=== PATIENT | female | born 1995 | race Caucasian/White ===

== ENCOUNTER 2024-02-25 23:04 | Observation (INO) | payer OTHER, SELFPAY ==
[2024-02-25 23:11] VITALS: BP 119/95
[2024-02-25 23:12] VITALS: PULSE 76; O2SAT 100
[2024-02-25 23:17] VITALS: BP 119/95; PULSE 77; RESP 17; TEMP 36.6; O2SAT 99; BMI 33.6
[2024-02-25 23:30] VITALS: PULSE 68; O2SAT 98
[2024-02-26] VITALS (31 sets, daily range): BP systolic 93–187; BP diastolic 52–98; PULSE 53–85; RESP 10–19; TEMP 36.5–36.9; O2SAT 96–100; BMI 33.6
--- NOTE | 2024-02-26 00:13 | DI.RAD.S_ITS ---
PROCEDURE: XR KNEE RT 3V INDICATIONS: trauma TECHNIQUE: 3 views of the knee were acquired. COMPARISON: None. FINDINGS: Bones: No fractures or dislocations. No suspicious bony lesions. Soft tissues: No joint effusion. No suspicious soft tissue calcifications. Deep laceration anterior to the tibia. IMPRESSION: Deep laceration anterior to the tibia. No underlying fracture. Dictated by: Isaias Moura M.D. on 02/26/2024 at 0:34 Approved by: Isaias Moura M.D. on 02/26/2024 at 0:38
[2024-02-26] MEDS: SODIUM CHLORIDE 0.9% 1,000 ML 150 ML IV (00:43)
[2024-02-26] MEDS: KETOROLAC 30 MG/ML VIAL 15 MG IV (00:43)
[2024-02-26] MEDS: TET,DIPH,PERTUSS(ACELL),VAC/PF 0.5 ML SYRINGE IM (00:45)
--- NOTE | 2024-02-26 00:49 | ED_ITS ---
HPI - Extremity Injury (Lower) General Chief Complaint: Extremity Injury, Lower Stated Complaint: degloved rt kneecap Time Seen by Provider: 02/26/24 00:03 Source: patient Mode of arrival: Ambulatory History of Present Illness HPI Narrative: 28-year-old woman with a history of depression, ulcerative colitis currently on immune modulating medications was walking on the beach slipped on a rock landed on another rock with a large laceration over the entire anterior surface of the knee with concern for intra-articular extension. Related Data Allergies Allergy/AdvReac Type Severity Reaction Status Date / Time No Known Drug Allergies Allergy Verified 02/26/24 00:42 Review of Systems Review of Systems Narrative: Pertinent positive and negative findings as per HPI Patient History Medical History (Updated 02/26/24 @ 02:10 by Janina Hoang MD) Depression Ulcerative colitis alcohol intake frequency: a few times a week Substance Use Type: marijuana Exam Initial Vital Signs Initial Vital Signs: Vital Signs Temperature 97.8 F 02/25/24 23:17 Pulse Rate 77 02/25/24 23:17 Respiratory Rate 17 02/25/24 23:17 Blood Pressure 119/95 H 02/25/24 23:17 Pulse Oximetry 99 02/25/24 23:17 Oxygen Delivery Method Room Air 02/25/24 23:17 General: Healthy appearing, in no acute distress. Able to give a complete and coherent history. Well-nourished well-developed HEENT: Moist mucous membranes, normal sclera with reactive pupils, Respiratory: Lungs are clear to auscultation, no wheezing no rales no rhonchi. Full and symmetrical air movement Cardiac: Regular rate and rhythm no murmurs no bruits Abdomen: Soft, nontender, good bowel tones, no flank pain Skin: Warm and dry, Neurologic: Grossly neurologically intact with no obvious asymmetries or abnormalities Extremities: Large full-thickness laceration across the entire anterior portion of the right knee. When the large flap is retracted complete tibial tuberosity is exposed. With slight flexion of the knee it does appear to be intra- articular. She is neurovascularly intact. Psych: Cooperative, appropriate insight and affect Course Orders Ordered: ED Orders 02/26/24 00:13 XR knee RT 3V Stat 02/26/24 00:38 Complete Blood Count AUTO DIFF Stat Comprehensive Metabolic Panel Stat Hydromorphone HCl (Hydromorphone 0.5 Mg Inj) 0.5 mg IV Q15MIN PRN PRN Reason: Pain, Last Admin: 02/26/24 01:06 Dose: 0.5 mg Documented By: JUAN Sodium Chloride (Normal Saline 0.9%) 1,000 mls @ 150 mls/hr IV CONT OMARI Last Admin: 02/26/24 00:43 Dose: 150 mls/hr Documented By: JUAN Discontinued Medications Diphtheria/Tetanus/Acell Pertussis (Tet,Diph,Pertuss(Acell),Vac/Pf 0.5 Ml Syringe) 0.5 ml IM .ONCE ONE Stop: 02/26/24 00:14 Last Admin: 02/26/24 00:45 Dose: 0.5 ml Documented By: JUAN Cefazolin Sodium/Dextrose (Ancef) 100 mls @ 200 mls/hr IV NOW ONE Stop: 02/26/24 00:42 Last Infusion: 02/26/24 01:27 Dose: Infused Documented By: Admin: 02/26/24 00:50 Dose: 200 mls/hr Documented By: JUAN Ketorolac Tromethamine (Ketorolac 30 Mg/Ml Vial) 15 mg IV NOW ONE Stop: 02/26/24 00:14 Last Admin: 02/26/24 00:43 Dose: 15 mg Documented By: JUAN Vital Signs Vital signs: Vital Signs - 8 hr 02/25/24 23:17 Temperature 97.8 F Pulse Rate 77 Respiratory Rate 17 Blood Pressure 119/95 H Pulse Oximetry 99 Oxygen Delivery Method Room Air MDM - Extremity Injury (Lower) Lab Data 02/26/24 00:38 02/26/24 00:38 Labs: Lab Results 02/26/24 Range/Units 00:38 WBC 13.4 H (4.5-11.0) X10^3/uL RBC 4.43 (4.0-5.2) X10^6/uL Hgb 13.7 (12.0-16.0) g/dL Hct 40.5 (36-46) % MCV 91.5 (80-100) fL MCH 31.0 (26-34) PG MCHC 33.9 (30-36) % RDW 13.8 (11.6-14.8) % Plt Count 331 (150-400) X10^3/uL Neut % (Auto) 63.2 (50-75) % Lymph % (Auto) 24.1 L (25-40) % [place] % (Auto) 6.3 (3-14) % Eos % (Auto) 5.9 H (2-4) % Baso % (Auto) 0.5 (0-2) % Neut # (Auto) 8500 H (2093-4346) /uL Lymph # (Auto) 3200 (6419-3111) /uL [place] # (Auto) 800 (0-900) /uL Eos # (Auto) 800 H (0-450) /uL Baso # (Auto) 100 (0-100) /uL Sodium 139 (137-145) mmol/L Potassium 3.6 (3.4-5.1) mmol/L Chloride 108 H (98-107) mmol/L Carbon Dioxide 24 (22-32) mmol/L BUN 13 (7-17) mg/dL Creatinine 0.67 (0.52-1.04) mg/dL Estimated GFR > 60 (>60) mL/min BUN/Creatinine Ratio 19.4 (6-22) Glucose 103 H (70-100) mg/dL Calcium 9.6 (8.4-10.2) mg/dL Total Bilirubin 0.4 (0.2-1.3) mg/dL AST 22 (14-36) IU/L ALT 16 (<35) IU/L Alkaline Phosphatase 60 (38-126) U/L Total Protein 7.9 (6.3-8.2) g/dL Albumin 4.5 (3.5-5.0) g/dL Globulin 3.4 (1.7-4.1) g/dL Albumin/Globulin Ratio 1.3 (1.0-2.8) MDM Narrative Medical decision making narrative: CC: Fall on her right knee large laceration with intra-articular extension Complicating co-morbidities: Ulcerative colitis on [place], depression Data collected from: patient Social determinants of health that may influence the patients condition: [place], was [place] friends on [facility] at time of her accident Differential considered: Simple laceration, complex laceration, large laceration with intra-articular extension, open fracture Exam documented above, pertinent findings include: Patient has laceration extending across the entire anterior portion of the knee, complete thickness with full exposure anterior tibia and concern for intra- articular extension Lab Test results independently reviewed as above. Pertinent findings: CBC shows a white count of 13.4 without any significant left shift, she has not anemic Chemistries are reassuring Imaging studies independently reviewed: Deep laceration anterior to the tibia. No underlying fracture. Consultations: Discussion with Dr. Tan, orthopedic surgeon. Patient will be admitted with anticipation of surgical washout and laceration repair Treatments: Pain medication, antibiotics, tetanus shot, wound is cleaned wet to dry dressing is applied and knee immobilizer is placed Discussion: 28-year-old woman fell with full-thickness knee laceration with joint extension no obvious bony injury. We will be admitted for surgical washout and wound repair. Findings reviewed with the patient agrees with plan. Transition orders written for Dr. Tan. Discharge Plan Departure Patient Disposition: Admitted as Observation Clinical Impression: Deep laceration of knee Admit Date/Time: 02/26/24 01:09 Admit Provider: Joanne Tan
[2024-02-26] MEDS: CEFAZOLIN 2 GM/100 ML PREMIX 100 ML IV ×2 (00:50→12:59)
[2024-02-26 00:55] LABS: Add Manual Diff / Slide Review NO; Basophils Absolute Auto 100 /uL (0-100); Basophils Percent Auto 0.5 % (0-2); Eosinophils Absolute Auto 800 /uL (0-450); Eosinophils Percent Auto 5.9 % (2-4); Hematocrit 40.5 % (36-46); Hemoglobin 13.7 g/dL (12.0-16.0); Lymphocytes Absolute Auto 3200 /uL (1100-4500); Lymphocytes Percent Auto 24.1 % (25-40); Mean Corpuscular HGB Conc 33.9 % (30-36); Mean Corpuscular Volume 91.5 fL (80-100); Monocytes Absolute Auto 800 /uL (0-900); Monocytes Percent Auto 6.3 % (3-14); Neutrophils Absolute Auto 8500 /uL (1500-7000); Neutrophils Percent Auto 63.2 % (50-75); Platelet Count 331 X10^3/uL (150-400); Red Blood Cell Count 4.43 X10^6/uL (4.0-5.2); Red Cell Distribution Width 13.8 % (11.6-14.8); White Blood Cell Count 13.4 X10^3/uL (4.5-11.0)
[2024-02-26 01:01] LABS: Alanine Aminotransferase 16 IU/L (<35); Albumin 4.5 g/dL (3.5-5.0); Albumin Globulin Ratio 1.3 (1.0-2.8); Alkaline Phosphatase 60 U/L (38-126); Aspartate Aminotransferase 22 IU/L (14-36); BUN Creatinine Ratio 19.4 (6-22); Bilirubin Total 0.4 mg/dL (0.2-1.3); Blood Urea Nitrogen 13 mg/dL (7-17); Calcium 9.6 mg/dL (8.4-10.2); Carbon Dioxide 24 mmol/L (22-32); Chloride 108 mmol/L (98-107); Estimated Glomerular Filt Rate > 60 mL/min (>60); Globulin 3.4 g/dL (1.7-4.1); Glucose 103 mg/dL (70-100); HEMOLYSIS < 15 (0-50); Potassium 3.6 mmol/L (3.4-5.1); Sodium 139 mmol/L (137-145); Total Protein 7.9 g/dL (6.3-8.2)
[2024-02-26] MEDS: HYDROMORPHONE 0.5 MG INJ IV ×3 (01:06→08:57)
[2024-02-26] MEDS: SODIUM CHLORIDE 0.9% 1,000 ML 125 ML IV (07:23)
[2024-02-26] MEDS: CEFAZOLIN VIAL 1 GM in SODIUM CHLORIDE 0.9% 100 ML IV (08:07)
[2024-02-26] MEDS: ACETAMINOPHEN 325 MG TABLET 650 MG PO (08:08)
--- NOTE | 2024-02-26 09:00 | PM.HP.1 ---
History of Present Illness History of Present Illness Date Patient Seen: 02/26/24 Time Patient Seen: 09:00 Date of Onset of Symptoms: 02/25/24 Chief complaint: degloved rt kneecap Narrative: 28-year-old female currently on vacation on [facility]. Patient tripped and fell landing on a rock yesterday evening. 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 She is here with her and was planning to go back home Thursday. She was able to catch a very after the injury last night and presented to the emergency room. Current pain is mild. She denies any fever chills. No numbness and tingling right lower extremity. History of ulcerative colitis currently asymptomatic. Otherwise without complaints. Yesterday evening around 7:00 a.m. was the last time she had anything to eat or drink. [facility] Medical History Depression Ulcerative colitis Meds Home Medications and Allergies Allergies Allergy/AdvReac Type Severity Reaction Status Date / Time No Known Drug Allergies Allergy Verified 02/26/24 00:42 Review of Systems Review of Systems ROS: Yes All systems reviewed with the patient and are negative except as otherwise documented Exam Vital Signs (past 8 hours): - 02/26/24 01:01 02/26/24 01:03 02/26/24 01:03 Temperature Pulse Rate 70 Respiratory Rate Blood Pressure 110/59 L Pulse Oximetry 97 98 Oxygen Delivery Method 02/26/24 01:30 02/26/24 01:31 02/26/24 01:31 Temperature Pulse Rate 78 67 Respiratory Rate Blood Pressure 112/58 L Pulse Oximetry 97 97 Oxygen Delivery Method 02/26/24 02:00 02/26/24 02:00 02/26/24 02:30 Temperature Pulse Rate 63 Respiratory Rate Blood Pressure 102/57 L 105/57 L Pulse Oximetry 97 Oxygen Delivery Method 02/26/24 02:30 02/26/24 03:00 02/26/24 03:00 Temperature Pulse Rate 67 69 Respiratory Rate Blood Pressure 93/53 L Pulse Oximetry 96 96 Oxygen Delivery Method 02/26/24 03:30 02/26/24 03:30 02/26/24 04:00 Temperature Pulse Rate 61 64 Respiratory Rate 19 Blood Pressure 103/58 L 137/84 Pulse Oximetry 97 97 Oxygen Delivery Method Room Air 02/26/24 04:00 02/26/24 04:30 02/26/24 04:30 Temperature Pulse Rate 68 Respiratory Rate Blood Pressure 102/57 L 95/55 L Pulse Oximetry 97 Oxygen Delivery Method 02/26/24 05:00 02/26/24 05:00 02/26/24 05:30 Temperature Pulse Rate 53 L 57 L Respiratory Rate 18 Blood Pressure 135/75 103/67 Pulse Oximetry 100 97 Oxygen Delivery Method Room Air 02/26/24 05:30 02/26/24 06:00 02/26/24 06:00 Temperature Pulse Rate 63 77 Respiratory Rate 17 Blood Pressure 101/59 L 94/52 L Pulse Oximetry 96 98 Oxygen Delivery Method Room Air 02/26/24 06:30 02/26/24 06:30 02/26/24 06:44 Temperature 98.4 F Pulse Rate 73 75 Respiratory Rate 17 Blood Pressure 94/53 L 187/98 H Pulse Oximetry 97 98 Oxygen Delivery Method Room Air 02/26/24 07:00 02/26/24 07:00 02/26/24 07:18 Temperature Pulse Rate 60 67 Respiratory Rate Blood Pressure 96/59 L Pulse Oximetry 97 100 Oxygen Delivery Method 02/26/24 07:18 02/26/24 07:30 02/26/24 07:30 Temperature Pulse Rate 54 L Respiratory Rate Blood Pressure 114/71 109/68 Pulse Oximetry 100 Oxygen Delivery Method Room Air Oxygen Delivery Method Room Air Narrative Exam Narrative: Pleasant 28-year-old female resting comfortably in bed in no apparent distress. Right knee immobilizer and dressing are removed. There is approx. 4 cm full-thickness laceration just proximal to the tibial tuberosity. Patient able to hold a straight leg raise. Motor functions intact distal right lower extremity. Sensation grossly intact to light touch right lower extremity. She has good capillary refill. Const General: cooperative, healthy appearing and comfortable Orientation: alert Resp Effort & Inspection: normal respiratory effort and able to speak in complete sentences Auscultation: clear to auscultation bilaterally Cardio Rate: regular rate Rhythm: regular rhythm Objective Imaging Right knee x-ray: Radiologist's impression: Deep laceration anterior to the tibia. No underlying fracture Labs 02/26/24 00:38 02/26/24 00:38 Labs: Laboratory Results - last 24 hr 02/26/24 00:38 WBC 13.4 H RBC 4.43 Hgb 13.7 Hct 40.5 MCV 91.5 MCH 31.0 MCHC 33.9 RDW 13.8 Plt Count 331 Neut % (Auto) 63.2 Lymph % (Auto) 24.1 L [place] % (Auto) 6.3 Eos % (Auto) 5.9 H Baso % (Auto) 0.5 Neut # (Auto) 8500 H Lymph # (Auto) 3200 [place] # (Auto) 800 Eos # (Auto) 800 H Baso # (Auto) 100 Sodium 139 Potassium 3.6 Chloride 108 H Carbon Dioxide 24 BUN 13 Creatinine 0.67 Estimated GFR > 60 BUN/Creatinine Ratio 19.4 Glucose 103 H Calcium 9.6 Total Bilirubin 0.4 AST 22 ALT 16 Alkaline Phosphatase 60 Total Protein 7.9 Albumin 4.5 Globulin 3.4 Albumin/Globulin Ratio 1.3 Assessment & Plan Assessment & Plan narrative: Deep laceration right lower leg -dressing was applied. Continue knee immobilizer -patient will be scheduled for wound exploration, washout and closure later today in the OR with Dr. Tan -the procedure, alternatives, risks reviewed and all questions answered. Patient wishes to proceed with surgery as discussed. -NPO except for meds Time-Based Coding :: 25 minutes spent with patient and on the chart (including review of chart, obtaining history, exam, reviewing outside data, placing orders, documenting exam and treatment plan, and counseling patient) on 02/26/24.
[2024-02-26] MEDS: LACTATED RINGERS 1,000 ML 42 ML IV (11:43)
--- NOTE | 2024-02-26 12:15 | PC.NURSE ---
Discharge assessment documented from previous shift not for this patient. D/C assessment updated to accurate info regarding admit observation with surgery. IV remains in place. Belongings sent with patient in 2x labeled bags to pre op .
--- NOTE | 2024-02-26 12:42 | PM.OP.1 ---
Operative Date/Time/Diagnoses Date of procedure: 02/26/24 Time of procedure: 12:47 Pre-op diagnosis: Open right knee joint Post-op diagnosis: same Procedure & Clinicians Procedure: Irrigation and debridement excisional right knee and right knee open joint irrigation Same procedure as scheduled: Yes Indications: This is a 28-year-old girl who fell on [facility] when she was on the beach outside [facility] and sustained an open injury to her right knee. She came to [facility] Emergency room where she was felt to have an open knee she was brought to the operating room for irrigation and debridement and repair as indicated. Procedure options risks benefits and complications discussed in detail. Surgeon: Joanne Tan Click Yes if Unassisted: Yes Anesthesia Type: General Operative Notes Findings: Small into the right knee joint, some contamination he has tissues and fat, no evidence of extensor tendon disruption Closure Type: primary Specimen(s): none sent Estimated Blood Loss (mL): 20 Blood products transfused: none Tourniquet time (min): 15 Procedure in detail: Patient was brought the operating room she underwent induction by general anesthesia. A time-out was performed. Patient's right lower extremity prepped draped standard sterile fashion. High-thigh tourniquet was applied. The wound was meticulously explored. The patellar tendon appeared intact. There was a more than 5 cm transverse traumatic laceration across the anterior aspect of the knee. Dissection was carried out through skin and subcutaneous tissues. Small apart amount of subcutaneous tissue including fat was carefully debrided. Only grossly contaminated and contused nonviable appearing fat was debrided. An 18 gauge needle was inserted through a different entry portal into the knee joint and the knee was distended with 60 cc of dilute saline. There was extravasation of fluid from the knee joint. It was a fairly small traumatic puncture. The knee was then meticulously irrigated with multiple syringes flushing through the knee joint and out the traumatic puncture. The wound was meticulously irrigated with normal saline. Marcaine was injected. The wound was closed with interrupted Vicryl and skin wandy. The wound was dressed sterilely. Patient was placed in a knee immobilizer. She tolerated the procedure well was transferred to recovery room in satisfactory condition. Complications none. Complications: none Post-operative Condition: stable Disposition: same day surgery Plan for aftercare: Weight-bearing as tolerated right lower extremity. Okay to do nonweightbearing range of motion exercises for the right knee. Use knee brace for stability and until there was additional wound healing. Oral antibiotics for 10 days.
--- NOTE | 2024-02-26 12:42 | PM.PREOP ---
Pre-operative Note Interval Note History & Physical reviewed/Exam performed by Physician: Yes Changes to H&P: No
[2024-02-26 12:48] LABS: Pregnancy Test Serum,Qual Negative (Negative)
[2024-02-26] MEDS: ACETAMINOPHEN IV 1,000 MG/100 ML VIAL 400 MG IV (13:00)
--- NOTE | 2024-02-26 13:10 | SUR.OPER ---
Supine on padded OR bed, head on pillow, arms secured on padded arm boards at <90 degrees abduction, legs uncrossed, safety belt at thigh, tape over blanket over lower legs. bump under right hip
[2024-02-26] MEDS: BUPIVACAINE 0.25% (PF) VIAL 13 ML INJ (13:27)
[2024-02-26] MEDS: OXYCODONE IR 5 MG TABLET PO (13:47)
[2024-02-26] MEDS: hydrOXYzine 50 MG/ML INJ 25 MG IM (13:48)
== END 2024-02-26 14:04 | disposition home or self-care (01) ==
LOC: ED 02-26 00:03 → AC 02-26 01:48
PROVIDERS: Admitting Provider Orthopaedic Surgery; Emergency Provider Emergency Medicine; Referring Provider Emergency Medicine; Visit Provider Orthopaedic Surgery
PROC: (CPT 12032; principal; 2024-02-26 12:00)
DX: S81.011A Laceration without foreign body, right knee, initial encounter (principal); W01.198A Fall on same level from slipping, tripping and stumbling with subsequent striking against other object, initial encounter; Y92.832 Beach as the place of occurrence of the external cause; Z23 Encounter for immunization
CPT/HCPCS: 12032; 36415; 73562; 80053; 81025; 84703; 85025; 90471; 96361; 96365; 96367; 96375; 96376; 99284; G0378; 90715; J0136; J0690; J1100; J1170; J1885; J2250; J2405; J2704; J3010; J3410